=== PATIENT | male | born 1990 | race Hispanic/Latino ===

== ENCOUNTER 2017-05-08 12:14 | Outpatient (CLI) | payer OTHER ==
--- NOTE | 2017-05-08 15:10 | ULT ---
ULTRASOUND OF ABDOMEN: Date: 05/08/17 HISTORY: 26-year-old male with left lower quadrant pain. FINDINGS: The liver, spleen, gallbladder, pancreas, kidneys, and visualized portions of the aorta and IVC appea r normal. The common duct measures 4.0 mm in diameter. No free fluid is seen. The liver measures 16.0 cm, spleen measures 10.3 cm, right kidney measures 10.3 cm, and the left kidn ey measures 10.2 cm in length. IMPRESSION: Normal exam. POS: C
== END 2017-05-08 12:15 | disposition home or self-care (01) ==
LOC: NAV ULT 12:14
DX: R10.12 Left upper quadrant pain (principal)
CPT/HCPCS: 76700